=== PATIENT | male | born 1995 | race African-American/Black ===

== ENCOUNTER 2017-07-16 14:40 | Emergency (ER) | payer MEDICAID ==
[~2017-07-16] VITALS: Ht 198.1 cm; Wt 74.8 kg
[~2017-07-16 14:40] MED LIST: CHL12OR PO; IBUP800T24 PO; PENI500T2 PO
[2017-07-16 15:43] LABS: Urine Bilirubin Negative (Negative); Urine Blood TRACE /uL (Negative); Urine Color Yellow (Yellow); Urine Glucose Normal (Normal); Urine Ketone Negative (Negative); Urine Mucus FEW (None Seen); Urine Nitrite Negative (Negative); Urine RBC 16 /hpf (0 - 3); Urine Squamous Epithelial Cell FEW /hpf (<5); Urine Urobilinogen Normal (Negative)
[2017-07-16 16:00] VITALS: BP 132/66
== END 2017-07-16 17:13 | disposition home or self-care (01) ==
LOC: ER 14:40
DX: N20.0 Calculus of kidney (principal)
CPT/HCPCS: 74176; 80307; 81001

== ENCOUNTER → 2018-03-31 | Emergency (ER) | payer MEDICAID, OTHER | END | disposition left against medical advice (07) | LOC: ER 04:31 | DX: S69.82XA Other specified injuries of left wrist, hand and finger(s), initial encounter (principal); Z53.21 Procedure and treatment not carried out due to patient leaving prior to being seen by health care provider; X58.XXXA Exposure to other specified factors, initial encounter; Y93.89 Activity, other specified; Y99.8 Other external cause status; Y92.89 Other specified places as the place of occurrence of the external cause ==

== ENCOUNTER 2019-04-28 03:40 | Emergency (ER) | payer MEDICAID, OTHER ==
[~2019-04-28] VITALS: Ht 193 cm; Wt 77.1 kg
[2019-04-28 04:31] LABS: Urine Bacteria FEW /hpf (None Seen); Urine Blood TRACE /uL (Negative); Urine Hyaline Cast FEW /lpf (0 - 2); Urine Mucus FEW (None Seen); Urine Specific Gravity 1.022 (1.001-1.035); Urine WBC 4 /hpf (0 - 3)
[2019-04-28 06:34] LABS: Basophils # (auto) 0 uL; Basophils % (auto) 0.8 % (0.0-2.0); Eosinophils # (auto) 0.1 uL; Eosinophils % (auto) 1.8 % (0.0-7.0); Hematocrit 42.3 % (41.0-53.0); Hemoglobin 13.8 g/dL (13.5-17.5); Lymphocytes # (auto) 1.1 uL; Lymphocytes % (auto) 27.8 % (10.0-50.0); Mean Corpuscular Hemoglobin 27.5 pg (28.0-32.0); Mean Corpuscular Hgb Conc. 32.7 g/dL (32.0-36.0); Mean Corpuscular Volume 84.1 fL (80.0-100.0); Monocytes # (auto) 0.4 uL; Monocytes % (auto) 10.1 % (0.0-12.0); Neutrophils # (auto) 2.4 uL; Neutrophils % (auto) 59.5 % (37.0-80.0); Platelet Count (auto) 182 10^3/uL (140-450); Red Blood Cells 5.03 10^6/uL (4.5-5.90); Red Cell Distribution Width 15.9 % (11.8-14.3)
[2019-04-28 06:58] LABS: Albumin 3.9 g/dL (3.4-5.0); BUN/Creatinine Ratio 11.3; Calcium 8.7 mg/dL (8.5-10.1)
[2019-04-28 07:00] LABS: Bilirubin, Total 0.6 mg/dL (0.2-1.0); Total Protein 7.3 g/dL (6.4-8.2)
[2019-04-28] MEDS ORDERED: SODIUM CHLORIDE 0.9% 1,000 ML IV ONE ×3 (07:09→07:15)
[2019-04-28] MEDS ORDERED: KETOROLAC TROMETH 30 MG/ML 1ML VIAL IV ONE ×2 (07:15)
[2019-04-28] MEDS ORDERED: ONDANSETRON HCL 4 MG/2 ML VIAL IV ONE ×2 (07:15)
[2019-04-28 08:11] VITALS: BP 114/66
== END 2019-04-28 08:34 | disposition home or self-care (01) ==
LOC: EDBD 03:40 → ER 03:45
DX: N20.0 Calculus of kidney (principal); F17.210 Nicotine dependence, cigarettes, uncomplicated; F12.10 Cannabis abuse, uncomplicated; Z91.010 Allergy to peanuts
CPT/HCPCS: 36415; 74176; 80053; 81001; 85025; 96361; 96374; 96375; 99284; J1885; J2405; J7030